=== PATIENT | female | born 2000 | race Caucasian/White ===

== ENCOUNTER → 2020-03-22 14:19 | Outpatient (CLI) | payer OTHER, SELFPAY ==
--- NOTE | 2020-03-22 14:28 | DI.RAD.S_ITS ---
PROCEDURE: XR HIP W PEL IF DONE LT 2V INDICATIONS: Lt hip pain TECHNIQUE: 2 views of the hip were acquired. COMPARISON: None. FINDINGS: Bones: No fractures or dislocations. No suspicious bony lesions. The visualized pelvic ring appears intact. Soft tissues: No suspicious soft tissue calcifications or masses. IMPRESSION: Negative examination. If the patient's pain or other symptoms persist, consider further evaluation with MRI Dictated by: Gerard Munguia M.D. on 03/22/2020 at 16:21 Approved by: Gerard Munguia M.D. on 03/22/2020 at 17:13
== END ==
PROVIDERS: PCP Physician Assistant; Referring Provider Physician Assistant; Visit Provider Physician Assistant
DX: M25.552 Pain in left hip (principal)
CPT/HCPCS: 73502

== ENCOUNTER → 2020-03-28 18:57 | Outpatient (CLI) | payer OTHER, SELFPAY ==
--- NOTE | 2020-03-28 19:00 | DI.MRI.S_ITS ---
PROCEDURE: MR HIP LT WO CON INDICATIONS: PAIN LEFT HIP TECHNIQUE: Noncontrast coronal T1 spin echo and STIR through the bony pelvis. Coronal and axial T2 fast spin echo with fat saturation, sagittal T1 spin echo, and oblique axial T2 fast spin echo with fat saturation through the hip. COMPARISON: [facility], CR, XR HIP W PEL IF DONE LT 2V, 03/22/2020, 13:29. FINDINGS: Image quality: Excellent. Bones and joints: There is curvilinear low T1 signal intensity traversing the left femoral head, spanning roughly 35 mm anteroposterior. There is moderate to severe surrounding ill-defined STIR signal elevation within the left femoral head and neck. The visualized lower lumbar spine appears normally aligned. There is a moderate left hip joint effusion. Tendons and ligaments: The gluteus medius and minimus tendons appear intact, without associated muscle atrophy. The nearby proximal iliotibial band also appears intact. The iliopsoas tendon appears intact, without adjacent bursal fluid collections or evidence for impingement syndrome. The origin of the hamstring tendon is intact at the ischial tuberosity, as well as the associated sacrotuberous ligament. The straight and reflected heads of the rectus femoris muscle origin appear intact, as well as the conjoint tendon. The ligamentum teres appears intact where visualized. Labrum and cartilage: The acetabular labrum appears intact in the absence of intra-articular contrast. Cartilage surface of the femoral head appears of normal thickness. The alpha angle of the femur is within normal limits at less than 55 degrees. Soft tissues: Visualized muscles demonstrate normal bulk and internal signal. Quadratus femoris muscle demonstrates no internal edema to suggest ischiofemoral impingement. The proximal sciatic neurovascular bundle appears normal adjacent to the hamstring tendons. No free pelvic fluid. Bladder wall thickness is normal. Genitourinary structures and bowel loops appear normal where visualized. IMPRESSION: 1. Left femoral head avascular necrosis, with surrounding reactive marrow edema and left hip joint effusion. Dictated by: You Valladares M.D. on 03/29/2020 at 10:22 Approved by: You Valladares M.D. on 03/29/2020 at 10:26
== END ==
PROVIDERS: PCP Physician Assistant; Referring Provider Physician Assistant; Visit Provider Physician Assistant
DX: M25.552 Pain in left hip (principal); M87.9 Osteonecrosis, unspecified; M25.452 Effusion, left hip
CPT/HCPCS: 73721